=== PATIENT | female | born 1995 | race Caucasian/White ===

== ENCOUNTER → 2018-08-17 15:13 | Outpatient (CLI) | payer MEDICAID, SELFPAY ==
[2017-03-19 11:13] VITALS: BMI 30.6
== END ==
PROVIDERS: Family Provider Internal Medicine; PCP Internal Medicine; Referring Provider Advanced Practice Midwife; Visit Provider Advanced Practice Midwife
DX: O09.511 Supervision of elderly primigravida, first trimester (principal); Z82.69 Family history of other diseases of the musculoskeletal system and connective tissue; Z3A.00 Weeks of gestation of pregnancy not specified

== ENCOUNTER 2018-12-06 09:20 | Outpatient (CLI) | payer OTHER, SELFPAY ==
[2017-03-19 11:13] VITALS: BMI 30.6
[2018-12-06 09:42] VITALS: BMI 33.5
[2018-12-06 10:17] LABS: Mucous, Urine 0 SEEN /hpf (<or=2+); Red Blood Cells-Urine 0 SEEN /hpf (0-5)
[2018-12-06 10:19] LABS: Color, Urine Yellow (Yellow); Glucose, Dipstick Normal (Normal); Ketone-Dipstick 50 mg/dl (Negative); Leukocyte Esterase-Dipstick 500 /ul (Negative); Nitrite-Dipstick Negative (Negative); Occult Blood-Urine 10 /ul (Negative); Protein-Dipstick Negative (Negative); Urine Bilirubin Dipstick Negative (Negative); Urine Clarity Sl. Cloudy (Clear); Urine Urobilinogen Normal (Normal)
[2018-12-06 10:27] LABS: Bacteria 1+ /hpf (None Seen); Squamous Epithelial Cells - UA 0-5 SEEN /hpf (5-10); White Blood Cells 5-10 SEEN /hpf (0-5)
--- NOTE | 2018-12-08 17:54 | OB.TRI.NOTE ---
History of Present Illness Date of Service: 12/06/18 Was patient seen by the physician?: No Reason For Visit: BACK PAIN Date of Service: 12/06/18 Allergies jessie flavor Allergy (Verified 12/06/18 20:31) Hives rash nitrofurantoin [From Macrobid] Allergy (Verified 12/06/18 20:31) Pain in joints - Pertinent Past Medical History Medical History: Past Medical History (Last Reviewed 03/19/17 @ 11:15 by Elvira Tejada) H/O wisdom tooth extraction Laboratory Studies: Laboratory Tests 12/06/18 Range/Units 10:10 Urine Color Yellow (Yellow) Urine Clarity Sl. Cloudy (Clear) Urine pH 7.0 (5.0 - 8.0) Ur Specific [place] 1.010 (1.002-1.030) Urine Protein Negative (Negative) mg/dl Urine Glucose (UA) Normal (Normal) mg/dl Urine Ketones 50 H (Negative) mg/dl Urine Occult Blood 10 H (Negative) /ul Urine Nitrite Negative (Negative) Urine Bilirubin Negative (Negative) mg/dL Urine Urobilinogen Normal (Normal) mg/dl Ur Leukocyte Esterase 500 H (Negative) /ul Urine RBC 0 SEEN (0-5) /hpf Urine WBC 5-10 SEEN (0-5) /hpf Ur Squamous Epith Cells 0-5 SEEN (5-10) /hpf Urine Bacteria 1+ (None Seen) /hpf Urine Mucus 0 SEEN (<or=2+) /hpf Impression/Plan 23yo @ 23+ wks with back pain and intermittent fever at home 1) Urine sent for culture 2) Afebrile on unit and no ctx 3) dc home - instructions to call if worsening symptoms or fever
== END 2018-12-06 11:10 | disposition home or self-care (01) ==
LOC: WPOUT 09:32 → WP 12-07 07:30
PROVIDERS: Family Provider Internal Medicine; PCP Internal Medicine; Referring Provider Obstetrics & Gynecology; Visit Provider Obstetrics & Gynecology
DX: O26.892 Other specified pregnancy related conditions, second trimester (principal); M54.9 Dorsalgia, unspecified; R50.9 Fever, unspecified; Z3A.23 23 weeks gestation of pregnancy; Z88.1 Allergy status to other antibiotic agents
CPT/HCPCS: 59050; 81001; 87086; 87088; 87186; 99218; G0378

== ENCOUNTER 2018-12-06 19:40 | Emergency (ER) | payer OTHER, SELFPAY ==
[2018-12-06] VITALS (8 sets, daily range): BP systolic 96–125; BP diastolic 41–78; PULSE 124–140; RESP 18–36; TEMP 36.9–39.5; O2SAT 96–100; BMI 33.5; BMI 33.8
[2018-12-06] MEDS: 0.9% Normal Saline 1,000 ML 999 ML IV ×3 (20:54→23:37)
[2018-12-06 21:06] LABS: Absolute Lymphocyte Count 0.71 X10^3/uL (0.83-4.51); Absolute Neutrophil Count 15.8 X10^3/uL (2.0-7.7); Basophil# 0.04 X10^3/uL; Basophil% 0.2 % (0-1); Eosinophil# 0.07 X10^3/uL; Eosinophils% 0.4 % (0-5); Hematocrit 36.8 % (37-47); Hemoglobin 12.8 g/dL (12.0-15.0); Lymphocyte # 0.71 X10^3/ul (4.0); Lymphocyte % 3.9 % (19-41); Mean Corp Hgb Conc 34.8 g/dL (32-36); Mean Corpuscular Hgb 33.5 pg (27.0-32.0); Mean Corpuscular Volume 96.3 fL (81-99); Mean Platelet Vol. 10.3 fl (6.2-12.0); Monocyte# 1.06 X10^3/uL; Monocyte% 5.9 % (0-10); NRBC Flagged by Analyzer 0 % (0-5); Neutrophil # 15.78 X10^3/uL (2.7-7.7); Neutrophil % 87.7 % (47-70); POSITIVE MORPHOLOGY YES; Platelet Count 177 K/mm3 (150-450); RBC Distribution Width CV 12.5 % (11.6-14.6); RBC Distribution Width SD 43.6 fl (35.1-43.9); Red Blood Count 3.82 M/mm3 (4.2-5.4)
[2018-12-06 21:09] LABS: Differential Indicated SCAN CRITERIA MET
[2018-12-06 21:17] LABS: Anion Gap 7 (5-15); BUN 5 mg/dL (7-18); Calcium,Total 8.8 mg/dL (8.5-10.1); Chloride 106 mmol/L (98-107); Creatinine, Serum 0.72 mg/dL (0.55-1.02); EST Glomerular Filtration Rate 108 mL/min (>60); Est Glom Filt Rate - Afr Amer 131 mL/min (>60); Estimated Creatinine Clearance 105.83 ml/min; Glucose 98 mg/dL (74-106); Potassium 3.5 mmol/L (3.5-5.1); Sodium Level 134 mmol/L (136-145)
[2018-12-06 21:30] LABS: Differential Comment SCANNED
[2018-12-06] MEDS: Acetaminophen 325 MG Tablet 650 MG PO (21:31)
[2018-12-06 22:13] LABS: Mucous, Urine 0 SEEN /hpf (<or=2+); Red Blood Cells-Urine 0 SEEN /hpf (0-5)
[2018-12-06 22:20] LABS: Color, Urine Yellow (Yellow); Glucose, Dipstick Normal (Normal); Leukocyte Esterase-Dipstick 500 /ul (Negative); Nitrite-Dipstick Negative (Negative); Occult Blood-Urine 150 /ul (Negative); Protein-Dipstick 30 mg/dl (Negative); Specific Gravity, Urine 1.005 (1.002-1.030); Urine Bilirubin Dipstick Negative (Negative); Urine Clarity Cloudy (Clear); Urine Urobilinogen Normal (Normal)
--- NOTE | 2018-12-06 22:21 | ED.RN ---
RN INFORMED DR. PENALOZA OF PATIENT'S CURRENT VITALS 96/41,120,30,96% RA, 103.1 ORAL TEMP. PT HAS ALL [address] PENALOZA NO FURTHER LABS NEEDED AT THIS TIME. RN WILL CONTINUE TO MONITOR.
[2018-12-06 22:22] LABS: Ketone-Dipstick 150 mg/dl (Negative)
--- NOTE | 2018-12-06 22:23 | ED.RN ---
KETONES [address] PENALOZA NOTIFIED
[2018-12-06 22:36] LABS: Squamous Epithelial Cells - UA 5-10 SEEN /hpf (5-10); White Blood Cells 0-5 SEEN /hpf (0-5)
[2018-12-06 22:37] LABS: Bacteria 2+ /hpf (None Seen); Transitional Epithelial - Ur 0 SEEN /hpf (0-5)
--- NOTE | 2018-12-06 23:05 | EKG12_ITS ---
Test Reason : FEVER Blood Pressure : / mmHG Vent. Rate : 124 BPM Atrial Rate : 124 BPM P-R Int : 124 ms QRS Dur : 070 ms QT Int : 308 ms P-R-T Axes : 044 049 037 degrees QTc Int : 442 ms Sinus tachycardia Otherwise normal ECG Confirmed by HARVEY CARR ([id number]), editor news KIESHA NELSON ([id number]) on 12/12/2018 2:51:25 PM Referred By: JARRELL Confirmed By:HARVEY CARR
--- NOTE | 2018-12-06 23:08 | ED.RN ---
NO OLD EKGS IN MUSE
--- NOTE | 2018-12-06 23:54 | ED.VIS.GEN ---
History of Present Illness Chief Complaint: Fever Informant: Patient Onset: Days Context: Gradual Onset Narrative: Patient is a 23-year-old female with no significant past medical history presenting with a couple days of intermittent fever and myalgias. Patient states her fevers been as high as 102- 104 but responds to Tylenol when she takes it. Patient is 23 weeks gestation. She states she still feeling the baby move. She denies any dysuria or abnormal vaginal discharge. Patient does comment that she gets frequent infections. Patient is complaining of a headache and myalgias but denies any rash, joint pain, abdominal pain, nausea, vomiting, change in bowel habits, cough, shortness of breath or upper respiratory symptoms. Patient seen at her PROTOTYPE FABRICATOR office today and was urinalysis was negative. She was afebrile at that time. Patient called back when she spiked a fever and was told go to urgent care. Urgent care then sent her to the emergency room. Patient denies any sick contacts. Past Medical History - Allergies and Home Meds Allergies/Adverse Reactions: Allergies jessie flavor Allergy (Verified 12/06/18 20:31) Hives rash nitrofurantoin [From Macrobid] Allergy (Verified 12/06/18 20:31) Pain in joints Primary Care Physician: Deborah Myers MD [Primary Care Provider] - Past Medical History: - Surgical History: no surgical history Smoking Status: Never smoker Review of Systems All systems negative except as indicated General: Reports: Chills, Fever, Malaise Musculoskeletal: Reports: Myalgias Neurological: Reports: Headache Physical Exam Vital Signs/Narrative: Vital Signs Temp Pulse Resp BP Pulse Ox 12/06/18 23:46 98.4 F 129 H 19 H 99/55 L 100 12/06/18 22:43 99.9 F H 12/06/18 22:11 103.1 F H 125 H 30 H 96/41 L 96 12/06/18 21:40 102.2 F H 133 H 36 H 102/76 97 12/06/18 21:00 102.1 F H 129 H 23 H 123/78 H 98 12/06/18 20:47 102.2 F H 131 H 23 H 105/66 98 12/06/18 20:14 99.8 F H 140 H 18 125/72 H 100 Inital Vital Signs reviewed: Yes - Tachycardia General: Well nourished, Well developed, No Acute Distress Head: Normocephalic, Atraumatic Eyes: Perrl, EOMI ENT: Moist mucous membranes, No rhinorrhea, TM's clear, Nasal congestion Neck: Supple, Nontender, No lymphadenopathy, No JVD, - - No meningeal signs Cardiovascular: Regular rate, Regular rhythm, No murmurs Respiratory: No distress, CTA bilaterally, Chest nontender Abdomen: Soft, Nontender, Normal bowel sounds, - - Gravid abdomen above the level of the umbilicus : - - Edema and erythema of the vulva as well is white discharge consistent with yeast vaginitis, small ulceration of the left labia majora, 1 cm in diameter, tender to the touch Back: Nontender, Normal Inspection. Negative for: CVA tenderness Extremities: Nontender, No edema Skin: Normal color, No rash Neurological: Alert, Oriented x3, Cranial nerves II-XII grossly intact, Normal Strength, Normal Sensation, Normal Gait Psychological: Normal affect, Normal Mood Diagnostic/Tx/Re-eval Laboratory Results - last 24 hr 12/06/18 12/06/18 12/06/18 20:55 20:55 22:06 WBC 18.0 H RBC 3.82 L Hgb 12.8 Hct 36.8 L MCV 96.3 MCH 33.5 H MCHC 34.8 RDW Std Deviation 43.6 RDW Coeff of Vivian 12.5 Plt Count 177 MPV 10.3 Immature Gran % (Auto) 1.900 H Neut % (Auto) 87.7 H Lymph % (Auto) 3.9 L [place] % (Auto) 5.9 Eos % (Auto) 0.4 Baso % (Auto) 0.2 Absolute Neuts (auto) 15.8 H Absolute Lymphs (auto) 0.71 L Nucleated RBC % 0 Differential Comment SCANNED Sodium 134 L Potassium 3.5 Chloride 106 Carbon Dioxide 21.0 Anion Gap 7 BUN 5 L Creatinine 0.72 Estim Creat Clear Calc 105.83 Est GFR (MDRD) Af Amer 131 Est GFR (MDRD) Non-Af 108 BUN/Creatinine Ratio 7.0 L Glucose 98 Lactic Acid Calcium 8.8 Troponin I Urine Color Yellow Urine Clarity Cloudy Urine pH 7.0 Ur Specific [place] 1.005 Urine Protein 30 H Urine Glucose (UA) Normal Urine Ketones 150 H Urine Occult Blood 150 H Urine Nitrite Negative Urine Bilirubin Negative Urine Urobilinogen Normal Ur Leukocyte Esterase 500 H Urine RBC 0 SEEN Urine WBC 0-5 SEEN Ur Squamous Epith Cells 5-10 SEEN Ur Transition Epith Cell 0 SEEN Urine Bacteria 2+ Urine Mucus 0 SEEN 12/06/18 12/06/18 23:35 23:35 WBC RBC Hgb Hct MCV MCH MCHC RDW Std Deviation RDW Coeff of Vivian Plt Count MPV Immature Gran % (Auto) Neut % (Auto) Lymph % (Auto) [place] % (Auto) Eos % (Auto) Baso % (Auto) Absolute Neuts (auto) Absolute Lymphs (auto) Nucleated RBC % Differential Comment Sodium Potassium Chloride Carbon Dioxide Anion Gap BUN Creatinine Estim Creat Clear Calc Est GFR (MDRD) Af Amer Est GFR (MDRD) Non-Af BUN/Creatinine Ratio Glucose Lactic Acid 1.0 Calcium Troponin I < 0.015 Urine Color Urine Clarity Urine pH Ur Specific [place] Urine Protein Urine Glucose (UA) Urine Ketones Urine Occult Blood Urine Nitrite Urine Bilirubin Urine Urobilinogen Ur Leukocyte Esterase Urine RBC Urine WBC Ur Squamous Epith Cells Ur Transition Epith Cell Urine Bacteria Urine Mucus - Rhythm Strip Rhythm Strip: Sinus Tach Rate: 124 Ectopy: None - EKG Initial EKG Interpretation: Sinus Tachycardia, - - No ST segment abnormalities - Medical Decision Making She evaluated for persistent fever over the past few days. Initially afebrile but she is tachycardic. Patient is given IV fluids and CBC and BMP are checked. Urinalysis straight cath is obtained as patient did have 500 leukoesterase in her urine earlier today however the sample did appear mildly contaminated. Urine culture is pending. heart tones are obtained and are 149. Patient does spike a fever in the emergency room and her heart rate goes up into the 140s sustained. She is given Tylenol. After the 2 L of fluid patient is continuously tachycardic. EKG and troponin are added on which are normal. Patient clinically appears well. Her fever resolves however she still tachycardic. Discussed with her PROTOTYPE FABRICATOR, Dr. Charles, who agrees that patient benefit from admission because of her persistent tachycardia. Patient however declines admission. She states that she can take Tylenol at home and does not want to come into the hospital. Patient is counseled that she can be monitored closely have further evaluation as well as monitoring her baby. Patient decides to sign out AGAINST MEDICAL ADVICE. She is counseled on the risk of , permanent disability or comp occasions with her . She verbalizes agreement understanding with this. Patient has capacity to make this decision. Patient is discharged home with a prescription for terconazole for significant vulvovaginitis as well as Keflex for possible urinary tract infection. Patient does not have any hypoxia while the emergency room continues to have clear breath sounds. I do not suspect respiratory source and I do not suspect PE because of her tachycardia. With relatively normal EKG and a negative troponin do not suspect myocarditis. ED Disposition - Plan for ED Patient: Disposition: Against Medical Advice Diagnosis: Fever, Tachycardia, Leukocytosis, Yeast vaginitis Instructions: VAGINITIS, Osiris Prescriptions: Cephalexin [Keflex] 500 mg PO Q12 #10 cap Prescription Printed Terconazole 80 mg VG QHS #7 supp.vag Prescription Printed Referrals: Blaire Charles [STAFF PHYSICIAN] - 1 Day for another exam Deborah Myers MD [Primary Care Provider] - 1-2 Days if not improving Additional Instructions: Your heart rate was found to be very elevated while you are here. The exact cause of your fever is not clear. Possibly, you have a urinary tract infection. You were started on antibiotics for this. You are also started on a topical medication for a yeast infection. At any time that you change your mind, please return to the emergency room for reevaluation. Take Tylenol every 8 hours as needed for fever.
[2018-12-07 00:21] VITALS: BP 103/59; PULSE 130; RESP 20; TEMP 36.9; O2SAT 100; O2SAT 99
--- NOTE | 2018-12-07 00:45 | ED.RN ---
RN INTO ROOM TO CHECK ON PT. PT STATES SHE WANTS TO LEAVE AMA. RN INFORMS PT OF RISK FOR HERSELF AND BABY. PT STATES SHE IS FRUSTRATED BECAUSE NO ONE HAS BEEN ABLE TO TELL HER WHAT IS WRONG. RN STRESSED THAT WITH ADMISSION BABY WOULD BE ABLE TO BE MONITORED. RN TO INFORM DR. PENALOZA.
--- NOTE | 2018-12-07 00:45 | PCM.HP.STD ---
History of Present Illness The patient is a 23 year old F [] Past Medical History Medical History: Medical History (Last Reviewed 03/19/17 @ 11:15 by Elvira Tejada) H/O wisdom tooth extraction K08.499 Allergies jessie flavor Allergy (Verified 12/06/18 20:31) Hives rash nitrofurantoin [From Macrobid] Allergy (Verified 12/06/18 20:31) Pain in joints Home Medications: Ambulatory Orders Medication Instructions Recorded lactobacillus combination no.8 3 3,000 mmu cells PO QDAY 03/19/17 billion cell capsule Vit No.130/Iron/Folic 12/06/18 [ Tablet] Surgical History: no surgical history Smoking Status: Never smoker - Physical Exam Vital Signs Temp Pulse Resp BP Pulse Ox 98.4 F 130 H 20 H 103/59 L 100 12/07/18 00:21 12/07/18 00:21 12/07/18 00:21 12/07/18 00:21 12/07/18 00:21 Oxygen Delivery Method Room Air Weight: 89.4 kg Body Mass Index (BMI) 33.8 Intake and Output for Last 24 Hours 12/05/18 12/06/18 12/07/18 23:59 23:59 23:59 Intake Total 1999 Balance 1999 Laboratory Tests Past 24 Hrs 12/06/18 12/06/18 12/06/18 20:55 20:55 22:06 WBC 18.0 H RBC 3.82 L Hgb 12.8 Hct 36.8 L MCV 96.3 MCH 33.5 H MCHC 34.8 RDW Std Deviation 43.6 RDW Coeff of Vivian 12.5 Plt Count 177 MPV 10.3 Immature Gran % (Auto) 1.900 H Neut % (Auto) 87.7 H Lymph % (Auto) 3.9 L [place] % (Auto) 5.9 Eos % (Auto) 0.4 Baso % (Auto) 0.2 Absolute Neuts (auto) 15.8 H Absolute Lymphs (auto) 0.71 L Nucleated RBC % 0 Differential Comment SCANNED Sodium 134 L Potassium 3.5 Chloride 106 Carbon Dioxide 21.0 Anion Gap 7 BUN 5 L Creatinine 0.72 Estim Creat Clear Calc 105.83 Est GFR (MDRD) Af Amer 131 Est GFR (MDRD) Non-Af 108 BUN/Creatinine Ratio 7.0 L Glucose 98 Lactic Acid Calcium 8.8 Troponin I Urine Color Yellow Urine Clarity Cloudy Urine pH 7.0 Ur Specific [place] 1.005 Urine Protein 30 H Urine Glucose (UA) Normal Urine Ketones 150 H Urine Occult Blood 150 H Urine Nitrite Negative Urine Bilirubin Negative Urine Urobilinogen Normal Ur Leukocyte Esterase 500 H Urine RBC 0 SEEN Urine WBC 0-5 SEEN Ur Squamous Epith Cells 5-10 SEEN Ur Transition Epith Cell 0 SEEN Urine Bacteria 2+ Urine Mucus 0 SEEN 12/06/18 12/06/18 23:35 23:35 WBC RBC Hgb Hct MCV MCH MCHC RDW Std Deviation RDW Coeff of Vivian Plt Count MPV Immature Gran % (Auto) Neut % (Auto) Lymph % (Auto) [place] % (Auto) Eos % (Auto) Baso % (Auto) Absolute Neuts (auto) Absolute Lymphs (auto) Nucleated RBC % Differential Comment Sodium Potassium Chloride Carbon Dioxide Anion Gap BUN Creatinine Estim Creat Clear Calc Est GFR (MDRD) Af Amer Est GFR (MDRD) Non-Af BUN/Creatinine Ratio Glucose Lactic Acid 1.0 Calcium Troponin I < 0.015 Urine Color Urine Clarity Urine pH Ur Specific [place] Urine Protein Urine Glucose (UA) Urine Ketones Urine Occult Blood Urine Nitrite Urine Bilirubin Urine Urobilinogen Ur Leukocyte Esterase Urine RBC Urine WBC Ur Squamous Epith Cells Ur Transition Epith Cell Urine Bacteria Urine Mucus Assessment/Plan All Active Problems (Last Reviewed 03/19/17 @ 11:15 by Elvira Tejada) Physical exam, pre-employment (Acute)
--- NOTE | 2018-12-07 01:05 | ED.RN ---
DR PENALOZA & RN IN ROOM TO EXPLAIN RISK OF LEAVING AMA FOR PT AND BABY. PT STATES SHE STILL WANTS TO LEAVE AMA.
[2018-12-07 01:06] VITALS: BP 98/51; PULSE 138; RESP 34; TEMP 37.1; O2SAT 100
== END 2018-12-07 01:18 | disposition left against medical advice (07) ==
PROVIDERS: Emergency Provider Emergency Medicine; Family Provider Internal Medicine; PCP Internal Medicine
DX: O98.812 Other maternal infectious and parasitic diseases complicating pregnancy, second trimester (principal); B37.3 Candidiasis of vulva and vagina; O99.112 Other diseases of the blood and blood-forming organs and certain disorders involving the immune mechanism complicating pregnancy, second trimester; R50.9 Fever, unspecified; Z3A.23 23 weeks gestation of pregnancy; Z88.1 Allergy status to other antibiotic agents; D72.829 Elevated white blood cell count, unspecified
CPT/HCPCS: 80048; 81001; 83605; 84484; 85025; 87040; 87086; 87088; 87186; 93005; 96360; 96361; 99283; J7030; A4216

== ENCOUNTER 2019-01-05 17:35 | Outpatient (CLI) | payer OTHER, SELFPAY ==
[2018-12-06 19:41] VITALS: BMI 33.8
[2019-01-05 18:04] VITALS: BMI 34.0
[2019-01-05 18:41] LABS: Hematocrit 34.5 % (37-47); Hemoglobin 11.7 g/dL (12.0-15.0); Mean Corp Hgb Conc 33.9 g/dL (32-36); Mean Corpuscular Hgb 33.1 pg (27.0-32.0); Mean Corpuscular Volume 97.7 fL (81-99); Platelet Count 196 K/mm3 (150-450); RBC Distribution Width CV 14.3 % (11.6-14.6); RBC Distribution Width SD 50.8 fl (35.1-43.9); Red Blood Count 3.53 M/mm3 (4.2-5.4); White Blood Count 12.9 K/mm3 (4.4-11.0)
[2019-01-05 19:04] LABS: ALB/GLOB Ratio 0.6 RATIO (0.9-2.4); AST(SGOT) 16 U/L (15-37); Alanine Aminotransfer ALT/SGPT 18 U/L (13-56); Albumin, Serum 2.5 g/dL (3.2-5.0); Alkaline Phosphatase 136 U/L (45-117); Anion Gap 8 (5-15); BUN 6 mg/dL (7-18); BUN/Creat Ratio 10.1 RATIO (10-20); Calcium,Total 8.6 mg/dL (8.5-10.1); Chloride 108 mmol/L (98-107); EST Glomerular Filtration Rate 134 mL/min (>60); Est Glom Filt Rate - Afr Amer 162 mL/min (>60); Glucose 147 mg/dL (74-106); Potassium 3.4 mmol/L (3.5-5.1); Protein, Total 6.5 g/dL (6.4-8.2); Sodium Level 139 mmol/L (136-145)
[2019-01-05 19:37] LABS: Mucous, Urine 0 SEEN /hpf (<or=2+); Red Blood Cells-Urine 0 SEEN /hpf (0-5); Squamous Epithelial Cells - UA 0 SEEN /hpf (5-10)
[2019-01-05 19:38] LABS: Color, Urine Yellow (Yellow); Glucose, Dipstick Normal (Normal); Ketone-Dipstick 15 mg/dl (Negative); Leukocyte Esterase-Dipstick 500 /ul (Negative); Nitrite-Dipstick Negative (Negative); Occult Blood-Urine 10 /ul (Negative); Protein-Dipstick 15 mg/dl (Negative); Specific Gravity, Urine 1.005 (1.002-1.030); Urine Bilirubin Dipstick Negative (Negative); Urine Clarity Clear (Clear); Urine Urobilinogen Normal (Normal)
[2019-01-05 19:44] LABS: Bacteria 1+ /hpf (None Seen); White Blood Cells 0-5 SEEN /hpf (0-5)
[2019-01-05] MEDS: Cefazolin 2 GM in 0.9% Normal Saline 100 ML IV (20:20)
--- NOTE | 2019-01-05 20:24 | OB.TRI.NOTE ---
History of Present Illness Was patient seen by the physician?: Yes Reason For Visit: HX OF PYELO Date of Service: 01/05/19 Final AMI: 03/29/19 Gestational age: 28 Weeks and 1 Days History of Present Illness: Patient presents with concern over pyelonephritis. She didn't learn about her UTI until late today so hasn't started keflex. She reports some decreased appetite today & temp of 101 just before coming in this evening. Denies VB/LOF/ctxs. Reports good FM. She has some mild back pain. Allergies jessie flavor Allergy (Severe, Verified 01/05/19 19:17) Hives rash nitrofurantoin [From Macrobid] Allergy (Intermediate, Verified 01/05/19 19:17) Pain in joints - Pertinent Past Medical History Medical History: Past Medical History (Last Reviewed 03/19/17 @ 11:15 by Elvira Tejada) H/O wisdom tooth extraction Laboratory Studies: Laboratory Tests 01/05/19 01/05/19 01/05/19 Range/Units 18:25 18:20 18:20 WBC 12.9 H (4.4-11.0) K/mm3 RBC 3.53 L (4.2-5.4) M/mm3 Hgb 11.7 L (12.0-15.0) g/dL Hct 34.5 L (37-47) % MCV 97.7 (81-99) fL MCH 33.1 H (27.0-32.0) pg MCHC 33.9 (32-36) g/dL RDW Std Deviation 50.8 H (35.1-43.9) fl RDW Coeff of Vivian 14.3 (11.6-14.6) % Plt Count 196 (150-450) K/mm3 MPV 10.0 (6.2-12.0) fl Sodium 139 (136-145) mmol/L Potassium 3.4 L (3.5-5.1) mmol/L Chloride 108 H (98-107) mmol/L Carbon Dioxide 23.0 (21.0-32.0) mmol/L Anion Gap 8 (5-15) BUN 6 L (7-18) mg/dL Creatinine 0.60 (0.55-1.02) mg/dL Estim Creat Clear Calc 127.00 ml/min Est GFR (MDRD) Af Amer 162 (>60) mL/min Est GFR (MDRD) Non-Af 134 (>60) mL/min BUN/Creatinine Ratio 10.1 (10-20) RATIO Glucose 147 H (74-106) mg/dL Calcium 8.6 (8.5-10.1) mg/dL Total Bilirubin 0.40 (0.20-1.00) mg/dL AST 16 (15-37) U/L ALT 18 (13-56) U/L Alkaline Phosphatase 136 H (45-117) U/L Total Protein 6.5 (6.4-8.2) g/dL Albumin 2.5 L (3.2-5.0) g/dL Globulin 4.0 (2.2-4.2) g/dL Albumin/Globulin Ratio 0.6 L (0.9-2.4) RATIO Urine Color Yellow (Yellow) Urine Clarity Clear (Clear) Urine pH 7.0 (5.0 - 8.0) Ur Specific [place] 1.005 (1.002-1.030) Urine Protein 15 H (Negative) mg/dl Urine Glucose (UA) Normal (Normal) mg/dl Urine Ketones 15 H (Negative) mg/dl Urine Occult Blood 10 H (Negative) /ul Urine Nitrite Negative (Negative) Urine Bilirubin Negative (Negative) mg/dL Urine Urobilinogen Normal (Normal) mg/dl Ur Leukocyte Esterase 500 H (Negative) /ul Urine RBC 0 SEEN (0-5) /hpf Urine WBC 0-5 SEEN (0-5) /hpf Ur Squamous Epith Cells 0 SEEN (5-10) /hpf Urine Bacteria 1+ (None Seen) /hpf Urine Mucus 0 SEEN (<or=2+) /hpf Physical Exam General: Alert, Oriented x3 Abdomen: Soft, Non Tender - No back tenderness, Non-Distended, Gravid Neurological: Cranial nerves II-XII grossly intact INFORMATION SERVICES CONSULTANT: Normal external genitalia Estimated gestational size: Appropriate for gestational size NST - FHR Rate Baby A Baseline: 135 Variability:: Moderate Accelerations:: 15 x 15 Decelerations:: None NST Reactive:: Yes Uterine Activity:: Quiet Impression/Plan 23yo female with UTI Patient is AF here with no back tenderness. WBC mildly elevated & other labs overall normal. No evidence of pyelonephritis but will give IV ancef to treat UTI and patient will take keflex at home. Patient to call with fevers or other concerns. Potassium of 3.4 - patient advised on good potassium foods.
== END 2019-01-05 21:00 | disposition home or self-care (01) ==
LOC: WPOUT 17:52 → WP 17:52
PROVIDERS: Family Provider Internal Medicine; PCP Internal Medicine; Referring Provider Obstetrics & Gynecology; Visit Provider Obstetrics & Gynecology
DX: O23.42 Unspecified infection of urinary tract in pregnancy, second trimester (principal); Z3A.28 28 weeks gestation of pregnancy; Z88.1 Allergy status to other antibiotic agents
CPT/HCPCS: 96365; 36415; 59025; 59050; 80053; 81001; 85027; 87086; 87088; 87186; 99218; G0378

== ENCOUNTER 2019-04-01 07:40 | Inpatient (IN) | payer OTHER, SELFPAY ==
[2019-04-01 06:41] VITALS: BMI 38.9
[2019-04-01] MEDS: Lactated Ringers 1,000 ML 50 ML IV (08:00)
[2019-04-01 08:16] LABS: Absolute Lymphocyte Count 1.47 X10^3/uL (0.83-4.51); Absolute Neutrophil Count 8.7 X10^3/uL (2.0-7.7); Basophil# 0.01 X10^3/uL; Basophil% 0.1 % (0-1); Eosinophil# 0.06 X10^3/uL; Eosinophils% 0.5 % (0-5); Hematocrit 37.7 % (37-47); Hemoglobin 13.1 g/dL (12.0-15.0); Lymphocyte # 1.47 X10^3/ul (4.0); Lymphocyte % 13.4 % (19-41); Mean Corp Hgb Conc 34.7 g/dL (32-36); Mean Corpuscular Hgb 33.3 pg (27.0-32.0); Mean Corpuscular Volume 95.9 fL (81-99); Mean Platelet Vol. 11.7 fl (6.2-12.0); Monocyte# 0.66 X10^3/uL; NRBC Flagged by Analyzer 0 % (0-5); Neutrophil # 8.73 X10^3/uL (2.7-7.7); Neutrophil % 79.5 % (47-70); Platelet Count 184 K/mm3 (150-450); RBC Distribution Width CV 12.1 % (11.6-14.6); RBC Distribution Width SD 42.5 fl (35.1-43.9); Red Blood Count 3.93 M/mm3 (4.2-5.4)
[2019-04-01] MEDS: Lactated Ringers 500 ML 999 ML IV (08:52)
--- NOTE | 2019-04-01 10:06 | PCM.HP.OB ---
History Date of Admission: 04/01/19 Final AMI: 03/29/19 Gestational age: 40 Weeks and 3 Days History of this : This is a 23 year-old female presents with ctxs. Medical History: Medical History (Last Updated 04/01/19 @ 10:09 by Blaire Charles) History of pyelonephritis during Z87.59, Z87.440 IBS (irritable bowel syndrome) K58.9 H/O wisdom tooth extraction K08.499 Allergies jessie flavor Allergy (Severe, Verified 01/05/19 19:17) Hives rash nitrofurantoin [From Macrobid] Allergy (Intermediate, Verified 01/05/19 19:17) Pain in joints Home Medications: Home Medications lactobacillus combination no.8 3 billion cell capsule 3,000 mmu cells PO QDAY 03/19/17 Vit No.130/Iron/Folic [ Tablet] 1 tab PO DAILY 12/06/18 Cephalexin [Keflex] 500 mg PO DAILY 04/01/19 Smoking Status: Never smoker Number of Fetus(es): 1 NST - FHR Rate Baby A Baseline: 130 Variability:: Moderate Accelerations:: 15 x 15 Decelerations:: None Uterine Activity:: Irregular, Q3 minutes at times History Past Pregnancies: Past Pregnancies Delivery Date Name GA/ Weeks Outcome Route Wt Infant Sex Labor Length Anesthesia Delivery Location Provider FOB Labs: See [facility] H&P Physical Exam General: Alert, Oriented x3 Abdomen: Soft, Non Tender, Non-Distended, Gravid Extremities:: No tenderness/swelling Neurological: Cranial nerves II-XII grossly intact ASSOCIATE PRINCIPAL: Normal external genitalia Estimated gestational size: Appropriate for gestational size Presentation: Cephalic Cervix Dilation (cm): 5 Station: -1 Effacement (%): 90 Assessment/Plan All Active Problems (Last Updated 04/01/19 @ 10:09 by Blaire Charles) Physical exam, pre-employment (Acute) This is a 23 year-old, G1, P1, at 40&3 weeks gestational age. Admit to L&D Expectant management AROM clear fluid Pain - comfortable with epidural GBS negative EFW - less than 4500g, patient with adequate pelvis
[2019-04-01] MEDS: fentaNYL-bupivacaine (epidural) 100 ML BAG EPIDURAL ×3 (11:46→21:48)
[2019-04-01] MEDS: Oxytocin 30 units/NS 500 ml 30 UNITS/500 ML IV.SOLN IV (12:20)
[2019-04-01] MEDS: Lactated Ringers 1,000 ML 200 ML IV ×2 (13:06→18:06)
[2019-04-01] MEDS: Oxytocin 30 units/NS 500 ml 30 UNITS/500 ML IV.SOLN 334 UNITS IV (22:38)
--- NOTE | 2019-04-01 22:57 | PCM.OPRPT ---
Report of Operation Date of Procedure: 04/01/19 Vaginal Delivery Maternal Presentation: Active Labor Amniotic Fluid Description: Clear Final AMI: 03/29/19 Gestational age: 40 Weeks and 3 Days Date of Procedure: 04/01/19 Pre-Operative Diagnosis: labor, maternal exhaustion Post-Operative Diagnosis: same Surgery/ Procedure Performed: Vacuum Assisted Vaginal Delivery - outlet Type of Anesthesia: Epidural Description of Procedure: The patient was complete and pushing for 2-1/2 hours. She had made good progress. She progressed from +2 station to labia approximately 4 cm with pushing. Estimated weight is less than 4500 g clinically, pelvis was clinically adequate to expect vaginal delivery. Patient was becoming very fatigued. I discussed with her option of trial of outlet assisted vacuum delivery. Patient desired to proceed. The vacuum was placed on the flexion point and with a contraction, the vacuum was created to 550 mmHg. Pulled with 1 pull with 1 maternal push and the vacuum was removed. The patient then delivered head on the next push. A vigorous female infant was delivered ASHLYN over second-degree vaginal laceration. Tight nuchal cord x1 was reduced. The remainder the infant was delivered with maternal pushing and gentle traction only in less than 15 seconds. The Pitocin infusion was initiated for active management of the third stage. The cord was clamped and cut after 1 minute. The infant was attended to by the waiting nursing staff. The placenta was delivered spontaneously and intact. The cervix and vagina were intact. The maternal laceration was repaired with 3-0 Vicryl Rapide suture in a running standard fashion. Hemostasis was noted. Sponge and needle counts were correct. A vaginal sweep was completed by me. Presentation: ASHLYN Placental Delivery Description: Spontaneous Placenta Disposition: [facility] Cord Vessel Description: 3 Vessels Nuchal Cord Compression: Without compression Cord Entanglement: Around neck x 1, tight Drain: Gonzalez to straight drain Estimated Blood Loss: 500 Infant A gender: Female (1 minute): 8 (5 minute): 9 Episiotomy Description: None Laceration: 2nd degree - vaginal Medications given after delivery: IV Pitocin Complications: None
[2019-04-01] MEDS: Naproxen 250 MG Tablet 500 MG PO (23:20)
[2019-04-02 00:55] VITALS: BP 110/69; PULSE 92; RESP 18; TEMP 36.6; O2SAT 98
[2019-04-02] MEDS: 0.9% Saline Lock 10 ML Syringe IV (01:17)
[2019-04-02 04:43] VITALS: BP 101/63; PULSE 78; RESP 14; TEMP 36.4
[2019-04-02 05:09] LABS: Hematocrit 32.7 % (37-47); Hemoglobin 10.9 g/dL (12.0-15.0); Mean Corp Hgb Conc 33.3 g/dL (32-36); Mean Corpuscular Hgb 33.3 pg (27.0-32.0); Mean Platelet Vol. 11.7 fl (6.2-12.0); POSITIVE COUNT YES; Platelet Count 115 K/mm3 (150-450); RBC Distribution Width CV 12.6 % (11.6-14.6); RBC Distribution Width SD 46.1 fl (35.1-43.9); Red Blood Count 3.27 M/mm3 (4.2-5.4); Scan Indicated on CBC? Y/N NO; White Blood Count 19.6 K/mm3 (4.4-11.0)
[2019-04-02] MEDS: Naproxen 250 MG Tablet 500 MG PO ×2 (08:05→19:53)
[2019-04-02 08:11] VITALS: BP 112/76; PULSE 80; RESP 18; TEMP 36.6
[2019-04-02 14:00] VITALS: BP 97/71; RESP 17; TEMP 36.6
--- NOTE | 2019-04-02 17:32 | NURSING ---
1715- Patient continues to struggle with . Infant too sleepy and has poor suck. Patient continues to self express and feed with spoon drops of colostrum. Patient has been alone throughout this shift. seen early this morning but went home to take care of dog. He has not been back to unit. Questioned patient if family is coming to visit and patient reported they live with her mom and dad. She is unsure when he will return. No support system throughout shift. This nurse had to gather food to give patient because she did not order meals in time due to continuously attempting to breastfeed infant. Possible referral to child protective services social worker for poor support at home.
--- NOTE | 2019-04-02 18:24 | PCM.PN.OB ---
Subjective: No complaints - Physical Exam Vitals/I&O's: Vital Signs Temp Pulse Resp BP Pulse Ox 97.9 F 80 17 97/71 98 04/02/19 14:00 04/02/19 08:11 04/02/19 14:00 04/02/19 14:00 04/02/19 00:55 Oxygen Delivery Method Room Air Weight: 227 lb Body Mass Index (BMI) 38.9 Intake and Output for Last 24 Hours 03/31/19 04/01/19 04/02/19 23:59 23:59 23:59 Intake Total 3442.70 / 3442.70 333 / 333 Output Total 1500 / 1500 Balance 3442.70 / 3442.70 -1167 / -1167 General: Alert, Oriented x3 Abdomen: Soft, Non Tender, Non-Distended - ff mid & below umb Extremities: No Calf Tenderness Laboratory Results 04/02/19 05:00: WBC 19.6 H, RBC 3.27 L, Hgb 10.9 L, Hct 32.7 L, MCV 100.0 H, MCH 33.3 H, MCHC 33.3, RDW Std Deviation 46.1 H, RDW Coeff of Vivian 12.6, Plt Count 115 L, MPV 11.7 Current Medications Acetaminophen (Tylenol) 1,000 mg PO Q8H PRN PRN PRN Reason: Pain Score 1-3/10 Bisacodyl (Dulcolax) 10 mg RECTAL UD PRN PRN Reason: If no BM Dibucaine (Dibucaine) 1 applic TOPICAL TID PRN PRN; Protocol PRN Reason: Discomfort Hydrocortisone (Hytone) 1 applic TOPICAL TID PRN PRN; Protocol PRN Reason: Discomfort Methylergonovine Maleate (Methergine) 0.2 mg IM X1 PRN PRN Reason: Excess bleeding/uterine atony Naproxen (Naprosyn) 500 mg PO Q8H PRN PRN PRN Reason: Pain Score 1-3/10 Last Admin: 04/02/19 08:05 Dose: 500 mg Documented by: Ondansetron HCl (Zofran) 4 mg IV Q4H PRN PRN PRN Reason: Nausea Prochlorperazine Edisylate (Compazine Iv) 10 mg IV Q6H PRN PRN PRN Reason: NAUSEA/VOMITING Senna/Docusate Sodium (Senokot-S, [place]anza-Colace) 1 - 2 tablet PO DAILY PRN PRN PRN Reason: Constipation Simethicone (Mylicon) 80 mg PO PCHS PRN PRN Reason: Indigestion/Stomach pain Sodium Chloride () 5 - 15 ml IV UD PRN PRN Reason: SALINE FLUSH Last Admin: 04/02/19 01:17 Dose: 10 ml Documented by: Medical Necessity - Tobacco Use Smoking Status: Never smoker Assessment/Plan All Active Problems (Last Updated 04/01/19 @ 10:09 by Blaire Charles) Physical exam, pre-employment (Acute) PPD#1 Routine care Encouraged
[2019-04-02 19:32] VITALS: BP 105/74; PULSE 80; RESP 14; TEMP 36.6; O2SAT 99
[2019-04-03 01:37] VITALS: BP 107/70; PULSE 82; RESP 16; TEMP 36.6
[2019-04-03] MEDS: Naproxen 250 MG Tablet 500 MG PO (03:50)
[2019-04-03] MEDS: Acetaminophen 500 MG Tablet 1000 MG PO (06:18)
[2019-04-03 08:25] VITALS: BP 115/77; PULSE 87; RESP 18; TEMP 36.8
--- NOTE | 2019-04-03 08:57 | PCM.PN.OB ---
Subjective: Doing well per patient and nursing staff. Ambulating and taking PO without difficulty. Voiding and passing flatus. without difficulty. Denies headache, chest pain, SOB, or leg pain. Planning D/C home today. - Physical Exam Vitals/I&O's: Vital Signs Temp Pulse Resp BP Pulse Ox 97.9 F 82 16 107/70 99 04/03/19 01:37 04/03/19 01:37 04/03/19 01:37 04/03/19 01:37 04/02/19 19:32 Oxygen Delivery Method Room Air Weight: 227 lb Body Mass Index (BMI) 38.9 Intake and Output for Last 24 Hours 04/01/19 04/02/19 04/03/19 23:59 23:59 23:59 Intake Total 3442.70 / 3442.70 333 / 333 Output Total 1500 / 1500 Balance 3442.70 / 3442.70 -1167 / -1167 General: Alert, Oriented x3, Cooperative HEENT: Atraumatic, Normocephalic Neck: Trachea Midline Lungs: Clear to auscultation, Normal air movement, No rhonchi, No wheeze Cardiovascular: Regular rate, Regular Rhythm, No murmurs Abdomen: Soft, Non Tender, - - Fundus firm 2 below U Extremities: Edema - +1 bilaterally Psych/Mental Status: Normal Affect, Appropriate Current Medications Acetaminophen (Tylenol) 1,000 mg PO Q8H PRN PRN PRN Reason: Pain Score 1-3/10 Last Admin: 04/03/19 06:18 Dose: 1,000 mg Documented by: Bisacodyl (Dulcolax) 10 mg RECTAL UD PRN PRN Reason: If no BM Dibucaine (Dibucaine) 1 applic TOPICAL TID PRN PRN; Protocol PRN Reason: Discomfort Hydrocortisone (Hytone) 1 applic TOPICAL TID PRN PRN; Protocol PRN Reason: Discomfort Methylergonovine Maleate (Methergine) 0.2 mg IM X1 PRN PRN Reason: Excess bleeding/uterine atony Naproxen (Naprosyn) 500 mg PO Q8H PRN PRN PRN Reason: Pain Score 1-3/10 Last Admin: 04/03/19 03:50 Dose: 500 mg Documented by: Ondansetron HCl (Zofran) 4 mg IV Q4H PRN PRN PRN Reason: Nausea Prochlorperazine Edisylate (Compazine Iv) 10 mg IV Q6H PRN PRN PRN Reason: NAUSEA/VOMITING Senna/Docusate Sodium (Senokot-S, Esperanza-Colace) 1 - 2 tablet PO DAILY PRN PRN PRN Reason: Constipation Simethicone (Mylicon) 80 mg PO PCHS PRN PRN Reason: Indigestion/Stomach pain Sodium Chloride () 5 - 15 ml IV UD PRN PRN Reason: SALINE FLUSH Last Admin: 04/02/19 01:17 Dose: 10 ml Documented by: Medical Necessity - Tobacco Use Smoking Status: Never smoker Assessment/Plan All Active Problems (Last Updated 04/01/19 @ 10:09 by Blaire Charles) Physical exam, pre-employment (Acute) A:PPD #2 P: 1) Routine care 2) D/C home today 3) support
--- NOTE | 2019-04-03 09:01 | DCINST_ITS ---
Discharge Diet: No Restrictions Discharge Activity: Return to Normal Activity, May not drive while taking narcotic pain medications., May Shower, May Take a Tub Bath May resume sexual activity in: 4-6 weeks Weight Bearing Status: Full weight bearing Additional Activity Instructions:: Nothing in the vagina for 4-6 weeks. You may return to work/school in 6 weeks. Call your doctor if your incision/area has: Continuous Slow Oozing, Sudden Increased Bleeding, Increased Pain/ Swelling, Increased Redness, Foul Smelling Discharge Call your doctor if you observe: Fever of 101 or Higher, Inability to urinate, Inability to have a bowel movement, Using more than one pad per hour, Shortness of breath, Chest pain, Increased palpitations (irregular heartbeat), Calf discomfort, Uncontrolled pain Additional Instructions: If you experience any of the following, contact your healthcare provider. * Bleeding that soaks a pad every hour for 2 hours * Fever 100.4 or higher * Unrelieved incision or abdominal pain * Swelling, redness, discharge or bleeding from your incision or episiotomy site * Your incision begins to separate * Problems urinating (including inability to urinate or burning while urinating). * Visual changes * Severe headache * Flu-like symptoms * Pain or redness in one of both of your breasts * Pain, warmth, tenderness or swelling in your legs, especially the calf area * Frequent nausea and vomiting * Symptoms of depression or anxiety If you experience any of the following, call 911 or go to the nearest Emergency Room. * Chest pain * Problems breathing * Seizure activity * Partial or complete paralysis of a body part, slurred speech, weakness or drooping of the face, or a sudden inability to walk or hold your balance Allergies/Adverse Reactions: Allergies jessie flavor Allergy (Severe, Verified 01/05/19 19:17) Hives rash nitrofurantoin [From Macrobid] Allergy (Intermediate, Verified 01/05/19 19:17) Pain in joints Medications to take at Discharge lactobacillus combination no.8 3 billion cell capsule 3,000 mmu cells PO QDAY 03/19/17 Vit No.130/Iron/Folic [ Tablet] 1 tab PO DAILY 12/06/18 Please Follow Up With: lBaire Charles When: Call to make an appointment with your doctor in 2 weeks and 6 weeks. Primary Care Physician: Deborah Myers MD [Primary Care Provider] - Test Results: Test results from this visit will be discussed in further detail at your follow- up appointment, if applicable.
--- NOTE | 2019-04-03 11:00 | CASEMGMT ---
Social Work Assessment Labor and Delivery Unit Patient Address: [address] [place], [place] [address] [address] Phone number: [phone] Date of Referral: 04.02.2019 Time of Referral:1736 Referred By: Dr. Charles Date of Intervention: 04.03.2019 Time of Intervention: 1100 Reason for Referral: discharge planning and poor support system History obtained from: medical records and mother of baby (MOB) Stan Burch; father of baby (FOB) Elieser Burch also present. Household composition: MOB, FOB, and MOB's parents. Plant to take baby to this home. Home situation is reported as safe and adequate. Patient's parent/guardian status: MOB is age 22 and FOB is age 25, together for 2 years and in July of 2018. Upon admission MOB denied any concerns for abuse in this relationship. No endorsement or indication of such during assessment. [place] baby is the first for for both parents. Baby to be named Fern Burch, born on 04.01.2018. Medical History: MOB is G1, P0 to 1 after delivering Fern. care started at 7 weeks and adequate thereafter. Baby girl Fern delivered at 40 weeks, weighed 7 pounds 8 ounces. Apgars 8 and 9 at 1 and 5 minutes of life respectively. Educational Status: MOB has a bachelors degree in social work. No issues reading, writing, or with learning comprehension reported or endorsed. 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 FOB works 3rd shift in a factory. Infant Supplies: MOB and FOB report to have all needed supplies including car seat, clothing, diapers, wipes, and safe sleep space. MOB is planning to breast feed and has a pump. Childcare/Caregiver(s): MOB will be primary caregiver and then when MOB returns to work care will be provided by FOB and MOB's parents so that baby does not have to go to daycare. Transportation: No issues reported. Programs/Agencies Involved: No agency involvement. MOB reports has looked into many options and the family is over the income guidelines. MOB and FOB decline a [facility] referral. Children Services/Legal Issues: None. Behavioral Health Issues: Mental Health History: MOB denies any history of depression, anxiety or other emotional health issue. Substance Use History: MOB and FOB both deny any history of substance use issues. Family History: MOB denies any family history Drug Screens: Negative on 08.15.2018 Family/Social Stressors: MOB got in the spring and graduated from college, not having a baby. Living with MOB's parents has been helpful financially but has been an adjustment for FOB. Support Systems: MOB reports support from FOB, and her parents, more so with MOB's mother than father whom MOB and FOB describe as a little kid. Depression/Shaken Baby/Safe Sleeping : Information provided and reviewed verbally. MOB and FOB able to give appropriate responses. ASSESSMENT: Met with MOB and FOB in room together. Baby in bedside crib initially, MOB on bed and FOB sitting on couch. Baby started to cry and MOB made comment that just put baby down. FOB got up and picked up the baby, held the baby gently and appropriately, holding baby the entirety of social work visit. FOB gazed a baby, smiled and talked to baby. MOB thanked FOB for getting the baby, and looked over at the baby intermittently and smiled. MOB and FOB both engaged in conversation with this investigative writer and both held normal eye contact. MOB and FOB report to have needed supplies for the baby, to have enough room, and MOB reports to feel her support is adequate. Both parents listed to postaortic depression discussion, including that both moms and dads can develop this. Talked about possible interventions, and importance of letting others know if symptoms arise. MOB voiced understanding. FOB discussed that the labor process was hard for him as he felt helpless to assist MOB, so much so that FOB reports he was on his phone a lot to distract himself from feeling helpless and made the comment that if they choose to have another baby down the road FOB is not sure that he would be present for delivery, the whole process was so much for FOB to take in. MOB voiced to FOB that having him present was helpful, just knowing that FOB was there. This investigative writer acknowledged that it can be hard when one cannot fix things for their loved one but that sometimes just being present means the most. MOB and FOB accepting of community resource lists of [facility] and depression packets. MOB reports to feel that she will have enough help at home going and that she will try to ask for help and not do everything on her own. FOB was appropriate during social work visit and was able to communicate his thoughts and feelings labor, delivery and care. PLAN: MOB and baby to discharge home. [facility] resources lists in place and mood and anxiety packet also provided for home going. Left this investigative writer's name and number to call should parents have any questions about resources provided. No other services requested or indicated. -TRISTIN Yañez, [employer]
== END 2019-04-03 11:45 | disposition home or self-care (01) | DRG 807 ==
LOC: WPOUT 07:47 → WP 22:47
PROVIDERS: Obstetrics & Gynecology; Admitting Provider Obstetrics & Gynecology; Family Provider Internal Medicine; PCP Internal Medicine; Referring Provider Obstetrics & Gynecology; Visit Provider Obstetrics & Gynecology
DX: O48.0 Post-term pregnancy (principal); O75.81 Maternal exhaustion complicating labor and delivery; O70.1 Second degree perineal laceration during delivery; O69.1XX0 Labor and delivery complicated by cord around neck, with compression, not applicable or unspecified; O99.62 Diseases of the digestive system complicating childbirth; K58.9 Irritable bowel syndrome, unspecified; Z87.440 Personal history of urinary (tract) infections; Z3A.40 40 weeks gestation of pregnancy; Z37.0 Single live birth
CPT/HCPCS: 59025; 59050; 85025; 85027; 86850; 86900; 86901; 99218; J7120; A4216; G0378

== ENCOUNTER → 2021-08-29 | Outpatient (CLI) | payer OTHER, MEDICAID, SELFPAY ==
[2021-08-29 11:34] LABS: Hematocrit 43.4 % (37-47); Hemoglobin 14.3 g/dL (12.0-15.0); Mean Corp Hgb Conc 32.9 g/dL (32-36); Mean Corpuscular Hgb 31.6 pg (27.0-32.0); Mean Corpuscular Volume 95.8 fL (81-99); Mean Platelet Vol. 10.6 fl (6.2-12.0); Platelet Count 247 K/mm3 (150-450); RBC Distribution Width CV 11.5 % (11.6-14.6); RBC Distribution Width SD 40.4 fl (35.1-43.9); Red Blood Count 4.53 M/mm3 (4.2-5.4); White Blood Count 6.2 K/mm3 (4.4-11.0)
[2021-08-29 11:40] LABS: hCG Titer Quant., Serum 914 mIU/mL (1-3)
== END | disposition home or self-care (01) ==
PROVIDERS: PCP Internal Medicine; Visit Provider Student in an Organized Health Care Education/Training Program
DX: O02.1 Missed abortion (principal)
CPT/HCPCS: 36415; 84702; 85027; 86900; 86901

== ENCOUNTER → 2021-10-15 | Outpatient (CLI) | payer MEDICAID, SELFPAY ==
[2021-10-15 17:12] LABS: hCG Titer Quant., Serum < 1 mIU/mL (1-3)
== END | disposition home or self-care (01) ==
PROVIDERS: PCP Internal Medicine; Visit Provider Student in an Organized Health Care Education/Training Program
DX: N91.2 Amenorrhea, unspecified (principal)
CPT/HCPCS: 36415; 84702

== ENCOUNTER 2022-03-17 15:45 | Outpatient (CLI) | payer MEDICAID, SELFPAY ==
[2022-03-17 16:08] VITALS: BP 111/71; PULSE 102
[2022-03-17 16:09] VITALS: TEMP 37.2; O2SAT 99
[2022-03-17 16:18] VITALS: BMI 38.6
--- NOTE | 2022-03-17 20:26 | OB.TRI.HP_ITS ---
HPI - General General Date of Admission: 03/17/22 Date of Service: 03/17/22 Chief Complaint: abd pain HPI Narrative Patient complaining of diarrhea starting last night. She did not eat or drink anything all day and the diarrhea subsided. However she had some broth earlier and then the cramping and diarrhea started again. She denies any fevers or chills. She denies any known sick contacts but she does work at a school. She denies any vaginal bleeding or leaking of fluid. She denies any emesis. Has had some good movement. She is a 3 para 1 with EDC of 07/21/20192022 Maternal Data Information Final AMI: 07/20/22 Gestational age: 22 04/11 PFSH [facility] Medical History (Updated 03/17/22 @ 20:[address] Nahed Sheikh MD) History of pyelonephritis during IBS (irritable bowel syndrome) Home Medications vits no.130-ferrous fum 27 mg iron-folic acid 800 mcg tablet 1 tab PO DAILY 12/06/18 [History Last Taken 04/01/19] aspirin 81 mg capsule 81 mg PO DAILY 03/17/22 [History Last Taken Unknown] Allergy/AdvReac Type Severity Reaction Status Date / Time jessie flavor Allergy Severe Hives Verified 03/17/22 16:21 nitrofurantoin Allergy Intermediate Pain in Verified 03/17/22 16:21 [From Macrobid] joints doxycycline Allergy Rash Verified 03/17/22 16:21 Surgical History (Updated 03/19/17 @ 11:15 by Elvira Tejada) H/O wisdom tooth extraction Social History (Updated 03/19/17 @ 12:07 by Mann WIGGINS, FELICIANO) Smoking Status: Never smoker alcohol intake: never History Elective abortions Hx Para 0 Spontaneous abortions Hx # Term Pregnancies Ectopic pregnancies Hx # Pregnancies Multiple births # of living children Physical Exam Narrative Awake, alert, no acute distress. Does appear slightly pale and tired. Abdomen soft, nondistended, gravid, no fundal tenderness. No rebound or guarding. Mild diffuse tenderness. Extremities no edema. NST FHR Rate Baby A Baseline: 145 Variability:: Moderate Accelerations:: None Decelerations:: None NST Reactive:: Appropriate for gestational age Uterine Activity:: No contractions detected Assessment & Plan (1) 22 weeks gestation of : PLAN: 22-week multigravida with abdominal pain and diarrhea. Suspect viral gastroenteritis. Discussed with her symptomatic measures. Return if uncontroll able fever, dehydration, or other concerns. Patient is comfortable with this plan.
== END 2022-03-17 16:50 | disposition home or self-care (01) ==
LOC: WPOUT 15:55 → WP 15:55
PROVIDERS: PCP Internal Medicine; Referring Provider Obstetrics & Gynecology; Visit Provider Obstetrics & Gynecology
DX: O26.892 Other specified pregnancy related conditions, second trimester (principal); R19.7 Diarrhea, unspecified; Z79.82 Long term (current) use of aspirin; Z3A.22 22 weeks gestation of pregnancy; R10.9 Unspecified abdominal pain
CPT/HCPCS: 59050; 99218; G0378

== ENCOUNTER 2022-07-11 01:00 | Outpatient (CLI) | payer MEDICAID, SELFPAY ==
[2022-07-11] VITALS (10 sets, daily range): BP systolic 101–110; BP diastolic 58–59; PULSE 94–137; TEMP 36.7; O2SAT 97–99
[2022-07-11] MEDS: Lactated Ringers 1,000 ML 999 ML IV (01:45)
[2022-07-11] MEDS: Ondansetron 4 MG/2 ML Vial 8 MG IV (02:14)
[2022-07-11] MEDS: proCHLORPERazine 10 MG/2 ML Vial IV (03:07)
--- NOTE | 2022-07-11 10:33 | OB.TRI.NOTE ---
HPI - General General Date of Admission: 07/11/22 Date of Service: 07/11/22 Chief Complaint: stomach flu HPI Narrative PALLAVI HOSKINS, is a 27 F who presents w/ N/V/Diarrhea. Maternal Data Information Final AMI: 07/20/22 Gestational age: 38 5/7 [facility] Medical History (Updated 07/11/22 @ 10:[address] Nahed Sheikh MD) History of pyelonephritis during IBS (irritable bowel syndrome) Home Medications vits no.130-ferrous fum 27 mg iron-folic acid 800 mcg tablet 1 tab PO DAILY 12/06/18 [History Last Taken 07/10/22 09:00 1 tab] aspirin 81 mg capsule 81 mg PO DAILY 03/17/22 [History Last Taken 07/10/22 09:00 1 tab] Allergy/AdvReac Type Severity Reaction Status Date / Time jessie flavor Allergy Severe Hives Verified 07/11/22 01:20 nitrofurantoin Allergy Intermediate Pain in Verified 07/11/22 01:20 [From Macrobid] joints doxycycline Allergy Rash Verified 07/11/22 01:20 Surgical History H/O wisdom tooth extraction Social History (Updated 03/19/17 @ 12:07 by Mann WIGGINS, PA) Smoking Status: Never smoker alcohol intake: never History Elective abortions Hx Para 0 Spontaneous abortions Hx # Term Pregnancies Ectopic pregnancies Hx # Pregnancies Multiple births # of living children NST FHR Rate Baby A Baseline: 145 Variability:: Moderate Accelerations:: 15 x 15 Decelerations:: None NST Reactive:: Yes FHR Category:: Category I Uterine Activity:: irreg ctxs Assessment & Plan (1) Gastroenteritis: PLAN: 38-week multigravida patient with nausea vomiting diarrhea. Gastroenteritis. Better after IV antiemetics and some IV fluids. Discharge home. Call or return as needed. Otherwise follow-up in office as needed.
== END 2022-07-11 03:25 | disposition home or self-care (01) ==
LOC: WPOUT 01:06 → WP 01:07
PROVIDERS: PCP Internal Medicine; Visit Provider Obstetrics & Gynecology
DX: O99.613 Diseases of the digestive system complicating pregnancy, third trimester (principal); K52.9 Noninfective gastroenteritis and colitis, unspecified; Z3A.38 38 weeks gestation of pregnancy
CPT/HCPCS: 96374; 96375; 96361; 59025; 59050; 99221; J7120; G0378; J2405

== ENCOUNTER 2022-07-16 12:15 | Inpatient (IN) | payer MEDICAID, SELFPAY ==
[2022-07-16] VITALS (37 sets, daily range): BP systolic 100–144; BP diastolic 58–86; PULSE 51–131; RESP 13–19; TEMP 36.1–37; O2SAT 93–100; BMI 43.4
[2022-07-16] MEDS: Lactated Ringers 1,000 ML 50 ML IV (13:50)
[2022-07-16 14:04] LABS: Absolute Lymphocyte Count 1.51 X10^3/uL (0.83-4.51); Absolute Neutrophil Count 7.9 X10^3/uL (2.0-7.7); Basophil# 0.03 X10^3/uL; Basophil% 0.3 % (0-1); Eosinophil# 0.04 X10^3/uL; Eosinophils% 0.4 % (0-5); Hematocrit 39.7 % (37-47); Hemoglobin 13.3 g/dL (12.0-15.0); Lymphocyte # 1.51 X10^3/ul (0.83-4.51); Lymphocyte % 14.9 % (19-41); Mean Corp Hgb Conc 33.5 g/dL (32-36); Mean Corpuscular Volume 95.4 fL (81-99); Mean Platelet Vol. 10.6 fl (6.2-12.0); Monocyte# 0.58 X10^3/uL; Monocyte% 5.7 % (0-10); NRBC Flagged by Analyzer 0 % (0-5); Neutrophil # 7.93 X10^3/uL (2.7-7.7); Platelet Count 236 K/mm3 (150-450); RBC Distribution Width CV 14.4 % (11.6-14.6); RBC Distribution Width SD 50.3 fl (35.1-43.9); Red Blood Count 4.16 M/mm3 (4.2-5.4); White Blood Count 10.2 K/mm3 (4.4-11.0)
[2022-07-16] MEDS: Oxytocin 15 Units/NS 250ml 15 UNITS/250 ML IV.SOLN 2 UNITS IV (14:15)
[2022-07-16 14:48] LABS: Syphilis Antibodies Non-reactive
[2022-07-16] MEDS: LACTATED RINGERS 500 ML 999 ML IV (15:42)
--- NOTE | 2022-07-16 15:43 | PCM.PN.OB ---
Subjective Subjective Patient feeling ctxs. Objective Data Objective Data Vital Signs: Vital Signs Temp Pulse BP Pulse Ox 97.3 F L 93 125/86 H 100 07/16/22 14:25 07/16/22 15:36 07/16/22 15:36 07/16/22 14:25 Weight: 253 lb 8.505 oz Body Mass Index (BMI) 43.4 Intake & Output: Intake and Output for Last 24 Hours 07/14/22 07/15/22 07/16/22 23:59 23:59 23:59 Intake Total Balance Lab / Micro Data Result Diagrams: 07/16/22 13:50 Labs: Laboratory Results - last 24 hr 07/16/22 13:50: WBC 10.2, RBC 4.16 L, Hgb 13.3, Hct 39.7, MCV 95.4, MCH 32.0, MCHC 33.5, RDW Std Deviation 50.3 H, RDW Coeff of Vivian 14.4, Plt Count 236, MPV 10.6, Immature Gran % (Auto) 0.700, Neut % (Auto) 78.0 H, Lymph % (Auto) 14.9 L, [place] % (Auto) 5.7, Eos % (Auto) 0.4, Baso % (Auto) 0.3, Absolute Neuts (auto) 7.9 H, Absolute Lymphs (auto) 1.51, Nucleated RBC % 0 07/16/22 13:50: Blood Type O POSITIVE, Antibody Screen NEGATIVE 07/16/22 13:50: Syphilis Total Ab Non-reactive Physical Exam Narrative: cvx - 5/80/-2 NST FHR Rate Baby A Baseline: 140 Variability:: Moderate Accelerations:: 15 x 15 Decelerations:: None Uterine Activity:: Q 2-3 min Assessment & Plan (1) Morbid obesity: COMMENT: 39&3 PLAN: Plan AROM clear fluid Continue pitocin
[2022-07-16] MEDS: fentaNYL-bupivacaine (epidural) 100 ML BAG EPIDURAL (16:45)
--- NOTE | 2022-07-16 17:52 | CASEMGMT ---
Social Work Labor and Delivery Unit Responded to OB-ERT. Patient/mother of baby (MOB), father of baby (FOB) Rene Kaba and MOB's mother Andreina present in the room. This designer/writer remained present with FOB, providing updates as able, and offering emotional support while MOB's course of treatment was being determined. Stayed with FOB during the delivery as MOB received general anesthesia. Remained with FOB until FOB was able to see infant and ensure infant is doing okay. FOB tearful and expressed much worry for both MOB and infant, wanting both to be okay. FOB in agreement for this designer/writer to update Andreina that delivered and doing okay. Updated Andreina, and general timeframe in which MOB will be in Recovery. Emotional support offered to MOB's mother as well. After brief chart review noted MOB with a history of depression. 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 Plan: Will follow-up with MOB on 07/17/2022, to check in and touch base about mood and anxiety. -DANA Yañez, [employer] DEAN *This note was generated with Lead[employer] dictation software. It may contain incorrect words, spelling, and punctuation that were not noted in review of the chart prior to signing*
--- NOTE | 2022-07-16 18:01 | PCM.HP.OB ---
HPI - General General Date of Admission: 07/16/22 Date of Service: 07/16/22 HPI Narrative PALLAVI HOSKINS, is a 27 F who presents for induction. Maternal Data Information Final AMI: 07/20/22 Gestational age: 39&3 PFSH PFSH Medical History History of pyelonephritis during IBS (irritable bowel syndrome) Morbid obesity depression Home Medications vits no.130-ferrous fum 27 mg iron-folic acid 800 mcg tablet 1 tab PO DAILY 12/06/18 [History Last Taken 07/15/22 09:00 1 tablet] aspirin 81 mg capsule 81 mg PO DAILY Check with primary doctor 03/17/22 [History Last Taken 07/15/22 09:00 81 mg] Allergy/AdvReac Type Severity Reaction Status Date / Time jessie flavor Allergy Severe Hives Verified 07/11/22 01:20 nitrofurantoin Allergy Intermediate Pain in Verified 07/11/22 01:20 [From Macrobid] joints doxycycline Allergy Rash Verified 07/11/22 01:20 Surgical History H/O wisdom tooth extraction Social History Smoking Status: Never smoker alcohol intake: never History Elective abortions Hx Para 2 Spontaneous abortions Hx # Term Pregnancies Ectopic pregnancies Hx # Pregnancies Multiple births # of living children Vital Signs Vital Signs Vital Signs: 07/16/22 12:25 07/16/22 12:24 07/16/22 12:25 Temperature 97.5 F L Temperature Source Temporal Pulse Rate Blood Pressure 124/73 H BP Systolic 124 BP Diastolic 73 Pulse Ox 07/16/22 12:25 07/16/22 12:24 07/16/22 12:24 Temperature 97.5 F L Temperature Source Pulse Rate 113 H Blood Pressure BP Systolic BP Diastolic Pulse Ox 99 07/16/22 12:26 07/16/22 12:26 07/16/22 14:25 Temperature 97.3 F L Temperature Source Pulse Rate 107 H Blood Pressure BP Systolic BP Diastolic Pulse Ox 98 07/16/22 14:25 07/16/22 14:25 07/16/22 14:25 Temperature Temperature Source Temporal Pulse Rate 89 Blood Pressure 121/71 H BP Systolic 121 BP Diastolic 71 Pulse Ox 07/16/22 14:25 07/16/22 14:25 07/16/22 15:36 Temperature 97.3 F L Temperature Source Pulse Rate Blood Pressure 125/86 H BP Systolic 125 BP Diastolic 86 Pulse Ox 100 07/16/22 15:36 07/16/22 15:42 07/16/22 15:37 Temperature 97.0 F L Temperature Source Temporal Pulse Rate 93 Blood Pressure BP Systolic BP Diastolic Pulse Ox 07/16/22 15:37 07/16/22 16:31 07/16/22 16:31 Temperature 96.9 F L Temperature Source Pulse Rate 117 H Blood Pressure BP Systolic BP Diastolic Pulse Ox 99 07/16/22 16:36 07/16/22 16:36 07/16/22 16:36 Temperature Temperature Source Pulse Rate 95 Blood Pressure 133/81 H BP Systolic 133 BP Diastolic 81 Pulse Ox 100 07/16/22 16:41 07/16/22 16:41 07/16/22 16:42 Temperature Temperature Source Pulse Rate 80 Blood Pressure 132/69 H BP Systolic 132 BP Diastolic 69 Pulse Ox 100 07/16/22 16:42 07/16/22 16:47 07/16/22 16:47 Temperature Temperature Source Pulse Rate 90 51 L Blood Pressure 134/65 H BP Systolic 134 BP Diastolic 65 Pulse Ox 07/16/22 16:46 07/16/22 16:52 07/16/22 16:52 Temperature Temperature Source Pulse Rate 82 Blood Pressure 129/59 H BP Systolic 129 BP Diastolic 59 Pulse Ox 99 07/16/22 16:51 07/16/22 16:56 07/16/22 16:56 Temperature Temperature Source Pulse Rate 82 Blood Pressure 130/67 H BP Systolic 130 BP Diastolic 67 Pulse Ox 99 07/16/22 16:56 07/16/22 17:01 07/16/22 17:01 Temperature Temperature Source Pulse Rate 94 Blood Pressure BP Systolic BP Diastolic Pulse Ox 98 99 07/16/22 17:04 07/16/22 17:04 07/16/22 17:07 Temperature Temperature Source Pulse Rate 93 Blood Pressure 131/75 H 121/68 H BP Systolic 131 121 BP Diastolic 75 68 Pulse Ox 07/16/22 17:07 07/16/22 17:06 07/16/22 17:11 Temperature Temperature Source Pulse Rate 113 H Blood Pressure BP Systolic BP Diastolic Pulse Ox 100 100 07/16/22 17:12 07/16/22 17:12 Temperature Temperature Source Pulse Rate 131 H Blood Pressure 144/64 H BP Systolic 144 BP Diastolic 64 Pulse Ox Weight Weight: 253 lb 8.505 oz Body Mass Index (BMI) 43.4 Physical Exam Narrative: /-2 on admission Labs Labs Labs: Blood Type O POSITIVE Antibody Screen NEGATIVE Hct 39.7 % (37-47) Hgb 13.3 g/dL (12.0-15.0) Syphilis Total Ab Non-reactive Rhogam given: No Miscellaneous Test See [facility] H&P Assessment & Plan (1) Morbid obesity: COMMENT: @ 39&3 PLAN: Plan Admit to L&D Induction of labor for morbid obesity - counseled on R/B/A and informed consent signed. S/p Dilapan. S/p AROM. On pitocin Routine care
--- NOTE | 2022-07-16 18:01 | EX.PCM.OBRPT ---
Maternal Data Information Final AMI: 07/20/22 Gestational age: 39&3 Details Operative Information Date of Procedure: 07/16/22 Pre-Operative Diagnosis: (1) Umbilical cord prolapse (2) Compound presentation Post-Operative Diagnosis: Same Indications for : Distress and Prolapsed Cord Indications Narrative: Patient was checked by RN due to variables. hand was noted by head and then umbilical cord also noted to be pulsating by head. head elevated and patient taken to OR. The patient was taken to the operating room where epidural anesthesia was found to not be adequate. She was prepped and draped in the dorsal supine position with a leftward tilt. GETA placed. Then a Pfannenstiel skin incision was made approximately 2 cm above the symphysis pubis and carried through the fascia to the underlying rectus muscle. The rectus muscles were in the midline and the peritoneum was entered carefully and bluntly. The peritoneal incision was stretched and the bladder blade was inserted. The uterine incision was made in a low transverse fashion with the scalpel and extended superiorly and inferiorly with blunt dissection. The 's head was brought to the incision in the flexed position and delivered without difficulty. The head was gently guided to allow delivery of the anterior and posterior shoulders. The body then delivered with fundal pressure in the standard fashion. The 3VC cord was clamped and cut in delayed fashion. The infant was handed off to the waiting pediatric dentist. The placenta was delivered with fundal massage and gentle traction in the standard fashion. The uterus was exteriorized and cleared of clots and debris. The uterine incision was closed with #1 Vicryl suture in a running locked fashion. Monocryl suture was used in an imbricating fashion. The incision was examined and was found to be hemostatic. The uterus was returned to the abdominal cavity. After irrigating Yas was placed over the uterine incision as some areas were denuded (but hemostatic). The peritoneum was closed with vicryl suture in running fashion The rectus muscle was examined and any bleeding was Bovie cauterized. The fascia was closed with PDS suture in a running standard fashion. The subcutaneous tissue was examining and any bleeding was Bovie cauterized. The subcutaneous tissue was reapproximated with interrupted sutures. The skin was closed in a subcuticular fashion by the OPERATIONS PROFESSIONAL while I was present in the labor & delivery unit. The remainder of the procedure was performed by me with assistance. All sponge, lap, and needle counts were correct. The patient was taken to her room for recovery in a stable condition. Procedure Type: low transverse shell plater #1: Genevieve Moran Type of Anesthesia: Epidural and General Antibiotic Given: Ancef 2 grams IV x1 Drain: Gonzalez to straight drain Estimated Blood Loss: 750ml Fluids Replaced: 750ml Procedure Start Time: 17:26 Procedure Stop Time: 18:02 Findings Description of Procedure: Normal maternal uterus and adnexa Presentation: Positive for Vertex Amniotic Membrane Rupture Type: Artificial Amniotic Fluid Description: Clear Placental Delivery Description: Expressed Placenta Disposition: [facility] Cord Vessel Description: 3 Vessels Cord Entanglement: None Infant A Gender: Male (Norman. weight = 3465g) (1 minute): 9 (5 minute): 9 Delayed Cord Clamping: Yes
[2022-07-16] MEDS: Oxytocin 15 Units/NS 250ml 15 UNITS/250 ML IV.SOLN 83 UNITS IV (18:15)
[2022-07-16] MEDS: Ketorolac 30 MG/ML Syringe IV (18:56)
[2022-07-16] MEDS: Acetaminophen 500 MG Tablet 1000 MG PO (19:54)
[2022-07-16] MEDS: Lactated Ringers 1,000 ML 100 ML IV (20:04)
[2022-07-16] MEDS: HYDROmorphone 0.5 MG/0.5 ML SYRINGE IV (21:49)
[2022-07-16] MEDS: Enoxaparin 40 MG/0.4 ML Syringe SC (22:24)
[2022-07-17] VITALS (12 sets, daily range): BP systolic 95–117; BP diastolic 58–72; PULSE 66–90; RESP 15–16; TEMP 35.7–36.6; O2SAT 96–99
[2022-07-17] MEDS: Ketorolac 30 MG/ML Syringe IV ×3 (01:13→13:20)
[2022-07-17] MEDS: Acetaminophen 500 MG Tablet 1000 MG PO ×4 (02:28→21:22)
[2022-07-17] MEDS: HYDROmorphone 0.5 MG/0.5 ML SYRINGE IV (02:33)
[2022-07-17 05:49] LABS: Hematocrit 34.9 % (37-47); Hemoglobin 11.7 g/dL (12.0-15.0); Mean Corp Hgb Conc 33.5 g/dL (32-36); Mean Corpuscular Volume 95.4 fL (81-99); Mean Platelet Vol. 10.4 fl (6.2-12.0); Platelet Count 177 K/mm3 (150-450); RBC Distribution Width CV 14.4 % (11.6-14.6); RBC Distribution Width SD 49.9 fl (35.1-43.9); Red Blood Count 3.66 M/mm3 (4.2-5.4); White Blood Count 9.6 K/mm3 (4.4-11.0)
--- NOTE | 2022-07-17 07:54 | PN.OBGYN_ITS ---
Subjective Subjective Patient seen at bedside. Increased pain. Receiving IV pain medication throughout the night. Has ambulated to bathroom. Denies any headache, vision changes, SOB or CP. with minimal support. Objective Data Objective Data Vital Signs: Vital Signs Temp Pulse Resp BP Pulse Ox O2 Del Method 96.3 F L 69 15 95/58 L 99 Room Air 07/17/22 05:23 07/17/22 05:24 07/17/22 05:23 07/17/22 05:24 07/16/22 20:15 07/17/22 05:23 Oxygen Delivery Method Room Air Weight: 253 lb 8.505 oz Body Mass Index (BMI) 43.4 Intake & Output: Intake and Output for Last 24 Hours 07/15/22 07/16/22 07/17/22 23:59 23:59 23:59 Intake Total 1070.76 / 1070.76 1000 / 1000 Output Total 1250 / 1250 750 / 750 Balance -179.24 / -179.24 250 / 250 Lab / Micro Data Result Diagrams: 07/17/22 05:30 Labs: Laboratory Results - last 24 hr 07/16/22 13:50: WBC 10.2, RBC 4.16 L, Hgb 13.3, Hct 39.7, MCV 95.4, MCH 32.0, MCHC 33.5, RDW Std Deviation 50.3 H, RDW Coeff of Vivian 14.4, Plt Count 236, MPV 10.6, Immature Gran % (Auto) 0.700, Neut % (Auto) 78.0 H, Lymph % (Auto) 14.9 L, Bandera % (Auto) 5.7, Eos % (Auto) 0.4, Baso % (Auto) 0.3, Absolute Neuts (auto) 7.9 H, Absolute Lymphs (auto) 1.51, Nucleated RBC % 0 07/16/22 13:50: Blood Type O POSITIVE, Antibody Screen NEGATIVE 07/16/22 13:50: Syphilis Total Ab Non-reactive 07/17/22 05:30: WBC 9.6, RBC 3.66 L, Hgb 11.7 L, Hct 34.9 L, MCV 95.4, MCH 32.0, MCHC 33.5, RDW Std Deviation 49.9 H, RDW Coeff of Vivian 14.4, Plt Count 177, MPV 10.4 Physical Exam Narrative Dressing is dry and intact Const alert and no apparent distress General Appearance: cooperative and comfortable Exam Limitations: no limitations HEENT normocephalic Eyes General Eye: normal appearance of both eyes Neck full ROM General: normal visual inspection Chest Chest: symmetrical chest wall rise Resp normal respiratory effort and normal air movement Effort and Inspection: symmetric chest movement Auscultation: clear to auscultation bilaterally Cardio regular rate and regular rhythm GI normal to inspection, nondistended, normoactive bowel sounds Back/Spine normal ROM Extremity full ROM and no calf tenderness General Extremity: normal exam except as noted Skin no rashes or lesions noted Neuro CN's II-XII intact bilaterally Psych mental status grossly normal Assessment & Plan (1) Status post primary low transverse section: (2) Care and examination of lactating mother: (3) Morbid obesity: COMMENT: @ 39&3 (4) Hx of depression, currently : PLAN: Plan POD 1 Primary C/S Pain control Increase ambulation today support Lochia mild
[2022-07-17] MEDS: oxyCODONE 5 MG Tablet PO ×4 (08:37→23:45)
[2022-07-17] MEDS: Senna/Docusate Sodium 1 Tablet PO (10:09)
[2022-07-17] MEDS: Enoxaparin 40 MG/0.4 ML Syringe SC ×2 (10:09→21:44)
[2022-07-17] MEDS: 0.9% Saline Lock 10 ML Syringe IV (13:20)
[2022-07-17] MEDS: Ibuprofen 600 MG Tablet PO (18:40)
[2022-07-18] VITALS (9 sets, daily range): BP systolic 89–101; BP diastolic 45–64; PULSE 66–76; RESP 15–16; TEMP 35.9–36.5; O2SAT 97–98
[2022-07-18] MEDS: Ibuprofen 600 MG Tablet PO ×3 (00:44→13:08)
[2022-07-18] MEDS: Acetaminophen 500 MG Tablet 1000 MG PO ×3 (03:32→16:09)
--- NOTE | 2022-07-18 04:16 | NURSING ---
previous pt BP was 89/45- pt asymptomatic besides super tired and was sleeping before 0220 vitals were taken. rechecked after pt was awake and handling infant and BP 96/55 and HR 66.
[2022-07-18] MEDS: oxyCODONE 5 MG Tablet PO (08:38)
--- NOTE | 2022-07-18 08:42 | PN.OBGYN_ITS ---
Subjective Subjective Doing well per patient and nursing staff. Ambulating and taking PO without difficulty. Voiding and passing flatus. Pain controlled. , services for assistance. Denies headache, visual changes, chest pain, shortness of breath, leg pain or increased bleeding. Lochia normal. Objective Data Objective Data Vital Signs: Vital Signs Temp Pulse Resp BP Pulse Ox O2 Del Method 97.2 F L 71 16 101/62 97 Room Air 07/18/22 08:41 07/18/22 08:41 07/18/22 02:20 07/18/22 08:41 07/18/22 08:41 07/17/22 19:45 Oxygen Delivery Method Room Air Weight: 253 lb 8.505 oz Body Mass Index (BMI) 43.4 Intake & Output: Intake and Output for Last 24 Hours 07/16/22 07/17/22 07/18/22 23:59 23:59 23:59 Intake Total 1070.76 / 1070.76 1000 / 1000 Output Total 1250 / 1250 2049 / 2049 Balance -179.24 / -179.24 -1050 / -1050 Lab / Micro Data Result Diagrams: 07/17/22 05:30 ROS Constitutional Constitutional: Reports systems reviewed and no addt'l complaints, except as documented; Denies headache(s) Eyes Eyes: Denies acute decrease in peripheral vision, blurry vision or change in vis ion ENT HEENT: Reports systems reviewed and no addt'l complaints, except as documented Cardiovascular Cardiovascular: Denies chest pain or dizziness Respiratory/Chest Respiratory/Chest: Denies cough, dyspnea, dyspnea on exertion, shortness of breath at rest or shortness of breath with exertion Gastrointestinal Gastrointestinal: Denies abdominal pain, diarrhea, nausea or vomiting Genitourinary Genitourinary: Reports abdominal discomfort Musculoskeletal Musculoskeletal: Denies limited range of motion Integumentary Integumentary: Reports systems reviewed and no addt'l complaints, except as documented Neurologic Neurologic: Reports systems reviewed and no addt'l complaints, except as documented Psychiatric Psychiatric: Reports systems reviewed and no addt'l complaints, except as documented Endocrine Endocrinology: Reports systems reviewed and no addt'l complaints, except as documented Hematologic/Lymphatic Hematologic/Lymphatic: Reports systems reviewed and no addt'l complaints, except as documented Allergic/Immunologic Allergic/Immunologic: Reports systems reviewed and no addt'l complaints, except as documented Physical Exam Const alert and oriented x3 General Appearance: cooperative Orientation / Consciousness: awake, oriented to person, oriented to place and oriented to time Exam Limitations: no limitations HEENT normocephalic Head and Scalp: normal to inspection, normocephalic and atraumatic Face and Sinus: normal facial exam Eyes General Eye: normal appearance of both eyes Neck full ROM Chest Chest: symmetrical chest wall rise Resp normal respiratory effort and normal air movement Auscultation: clear to auscultation bilaterally Cardio regular rate, regular rhythm, S1 normal heart sound, S2 normal heart sound, no murmurs, no rub, no gallops and no clicks GI normal to inspection, nondistended, normoactive bowel sounds and non-tender appearance of the vagina normal Bladder / Kidney Exam: no CVA tenderness Back/Spine normal ROM Extremity normal to inspection and full ROM Skin no rashes or lesions noted Neuro oriented x3, CN's II-XII intact bilaterally and moves all extremities Sensorium / Orientation: awake, alert and oriented to person Motor Exam: clonus absent Deep Tendon Reflexes: Rt Patellar (L4): 2+ and Lt Patellar (L4): 2+ Assessment & Plan (1) Hx of depression, currently : (2) depression: (3) Care and examination of lactating mother: (4) Status post primary low transverse section: (5) Morbid obesity: PLAN: Plan 1) POD #2 LTCS 2) VS 3) I&O 4) Pain management 5) D/C home 6) Follow up in 1-2 weeks for incision and 6 weeks
--- NOTE | 2022-07-18 08:47 | PCM.DC.SUM ---
Providers Date of Admission: 07/16/22 Primary Care Physician: Dr. Deborah Myers MD Reason For Visit: PRIMARY Diagnosis Discharge Diagnosis (1) Hx of depression, currently : Status: Acute Code(s): O99.891 - Other specified diseases and conditions complicating ; Z86.59 - Personal history of other mental and behavioral disorders (2) depression: Status: Acute Code(s): F53.0 - depression (3) Care and examination of lactating mother: Status: Acute Code(s): Z39.1 - Encounter for care and examination of lactating mother (4) Status post primary low transverse section: Status: Acute Code(s): Z98.891 - History of uterine scar from previous surgery (5) Morbid obesity: Status: Acute Code(s): E66.01 - Morbid (severe) obesity due to excess calories Plan 1) POD #2 LTCS 2) VS 3) I&O 4) Pain management 5) D/C home 6) Follow up in 1-2 weeks for incision and 6 weeks Medications at Discharge Home Medications vits [id number] fum 27 mg iron-folic acid 800 mcg tablet 1 tab PO DAILY 12/06/18 acetaminophen 500 mg tablet 1,000 mg PO Q6H #0 tabs 07/18/22 ibuprofen 600 mg tablet 600 mg PO Q6H #0 tabs 07/18/22 oxycodone 5 mg tablet 5 mg PO Q6H 7 days #28 tabs 07/18/22 sennosides 8.6 mg-docusate sodium 50 mg tablet (Stool Softener-Stimulant Laxative) 1 - 2 tab PO DAILY #30 tabs 07/18/22 Hospital Course Summary of Care Provided Hospital Course: Presented on 06/15/22 for induction of labor. Umbilical cord prolapse with compound presentation during labor. Emergency section. Postop course uneventful. Discharge home on POD #2. Weight / BMI Weight Weight: 253 lb 8.505 oz Body Mass Index (BMI) 43.4 ABG / Lab / Microbiology Data Result Diagrams: 07/17/22 05:30 Meaningful Use Info Meaningful Use Diagnoses (Choose all that apply): None applicable Discharge Plan Admission Admit Date/Time: 07/16/22 12:15 Primary Reason for Your Visit: Section Attending Provider: Blaire Charles Primary Care Provider: Deborah Myers Discharge Orders/Prescriptions Prescriptions: New acetaminophen 500 mg Tablet 1,000 mg PO Q6H Qty: 0 0RF ibuprofen 600 mg Tablet 600 mg PO Q6H Qty: 0 0RF oxycodone 5 mg Tablet 5 mg PO Q6H 7 Days Qty: 28 0RF sennosides-docusate sodium [Stool Softener-Stimulant Laxat] 8.6-50 mg Tablet 1 - 2 tab PO DAILY Qty: 30 0RF Continued vit [id number] 1 EACH tablet 1 tab PO DAILY Discontinued aspirin 81 mg Capsule 81 mg PO DAILY Referrals / Follow Up: Deborah Myers MD [Primary Care Provider] - Disposition Disposition (needs filled in before D/C Order can be placed): Home, Self Care
[2022-07-18] MEDS: Enoxaparin 40 MG/0.4 ML Syringe SC (09:33)
[2022-07-18] MEDS: Senna/Docusate Sodium 1 Tablet PO (09:34)
== END 2022-07-18 17:09 | disposition home or self-care (01) | DRG 540 ==
PROVIDERS: Admitting Provider Advanced Practice Midwife; PCP Internal Medicine; Visit Provider Obstetrics & Gynecology
DX: O99.214 Obesity complicating childbirth (principal); E66.01 Morbid (severe) obesity due to excess calories; F53.0 Postpartum depression; O77.9 Labor and delivery complicated by fetal stress, unspecified; O69.0XX0 Labor and delivery complicated by prolapse of cord, not applicable or unspecified; O99.345 Other mental disorders complicating the puerperium; Z79.82 Long term (current) use of aspirin; Z3A.39 39 weeks gestation of pregnancy; Z37.0 Single live birth
CPT/HCPCS: 59025; 59050; 85025; 85027; 86780; 86850; 86900; 86901; 99221; J7120; A4216; G0378; J3490